=== PATIENT | male | born 1950 | race Caucasian/White ===

== ENCOUNTER 2020-04-23 14:49 | Outpatient (REF) | payer MEDICARE, SELFPAY ==
[2020-04-23 16:10] LABS: Urine Cytology See Pathology rpt
== END 2020-04-23 14:50 | disposition home or self-care (01) ==
LOC: HO.LAB 14:49
PROVIDERS: PCP Internal Medicine; Visit Provider Urology
DX: R31.0 Gross hematuria (principal)
CPT/HCPCS: 88112

== ENCOUNTER → 2020-04-30 10:06 | Outpatient (BNVA) | payer MEDICARE, SELFPAY | PROVIDERS: PCP Internal Medicine; Visit Provider Urology | DX: R31.0 Gross hematuria (principal); N40.1 Benign prostatic hyperplasia with lower urinary tract symptoms; N13.8 Other obstructive and reflux uropathy; R33.8 Other retention of urine; F17.200 Nicotine dependence, unspecified, uncomplicated | CPT/HCPCS: 52000; 99214 ==

== ENCOUNTER 2020-08-03 06:16 | Day surgery (SDC) | payer MEDICARE, SELFPAY ==
[2020-07-28 13:59] VITALS: BMI 29.9
[2020-08-03 06:49] VITALS: BP 134/77; PULSE 70; RESP 16; TEMP 36.3; O2SAT 94
[2020-08-03] MEDS: Lactated Ringers 1,000 ML 20 ML IVCONT (06:54)
[2020-08-03] MEDS: levoFLOXacin/D5W 500 MG/100 ML PIGGYBACK 100 MG IV (07:16)
--- NOTE | 2020-08-03 07:17 | P.CONAN_ITS ---
[facility] Past Medical History Medical History BPH (benign prostatic hyperplasia) Smoker Surgical History Surgical History History of detached retina repair History of open reduction and internal fixation (ORIF) procedure Social History Social History Are you a primary healthcare social worker to a significant other at home: No Do you presently have visiting nurse or other home services: No Smoking Status: Current every day smoker Packs Per Day: 0.25 Cigarettes Per Day: 5.0 Years Smoked: 40 Smoked in Last 30 Days: Yes Patient Interested in Nicotine Replacement: No Patient Given Instructions on How to Stop Smoking: Yes Date Education Initiated: 07/28/20 Use of substances other than those prescribed or required for medical reasons: No Have you been hit, kicked, punched, or otherwise hurt by someone within the past year? If so, by whom?: No Advance Directives: No Advance Directives Information Provided: No Advance Directives on File: No Recently lost weight without trying: No Meds Allergies Allergy/AdvReac Type Severity Reaction Status Date / Time No Known Allergies Allergy Verified 08/03/20 06:59 [No Known Allergies*] Home Medications Medication Instructions Recorded Confirmed Type chlorhexidine gluconate 0.12 % 15 ml PO BID 04/30/20 07/28/20 History mouthwash clobetasol 0.05 % topical cream g TOPICAL DAILY 04/30/20 History ofloxacin 0.3 % eye drops 1 drp OPHTHALMIC-RIGHT QID 04/30/20 07/28/20 History prednisolone acetate 1 % eye 1 drp OPHTHALMIC-RIGHT QID 04/30/20 07/28/20 History drops,suspension tamsulosin 0.4 mg capsule 0.4 mg PO DAILY 04/30/20 07/28/20 History Exam Exam Date and Time: August 03, 202017 Height,Weight and Vital Signs: Height 5 ft 5 in Weight 81.647 kg Last Vital Signs Temp 97.4 F 08/03/20 06:49 Pulse 70 08/03/20 06:49 Resp 16 08/03/20 06:49 BP 134/77 08/03/20 06:49 Pulse Ox 94 08/03/20 06:49 Airway Mallampati Class: II TM Dist: >3cm Neck ROM: Full Assessment and Plan Assessment Anesthesia Assessment: Anesthesia Plan Discussed, Smoking Cess. Discussed and Chart Reviewed Final Anesthetic Review NPO: Yes ASA Class: II Final Preanesthetic Review: No Changes in Pt Med Stat, Meds/Allgs Chart Reviewed, Consent Obtained/Reviewed and Anes Risks/Benef Reviewed Patient Risk: Low Procedure Risk: Low Assessment/Block/Sedation in SS: Assess/Block/Sedation-SS Anesthetic Plan Anesthetic Plan: MAC: Disposition: Standard PACU
[2020-08-03] MEDS: Gentamicin Sulfate/NaCl 80 MG/100 ML PIGGYBACK 100 MG IV (07:24)
[2020-08-03 07:49] VITALS: BP 107/65; PULSE 67; RESP 18; TEMP 36.4; O2SAT 94
[2020-08-03 08:04] VITALS: BP 115/75; PULSE 63; RESP 17; TEMP 36.3; O2SAT 96
--- NOTE | 2020-08-03 08:27 | HO.POSTANES ---
Post Anesthesia Evaluation Post Anesthesia Evaluation Vital Signs: Vital Signs Temp Pulse Resp BP Pulse Ox 08/03/20 08:04 97.3 F 63 17 115/75 96 08/03/20 07:49 97.6 F 67 18 107/65 94 08/03/20 06:49 97.4 F 70 16 134/77 94 Anesthesia: Monitored Mental Status: Awake Pain Control: Satisfactory Nausea/Vomiting: None Hydration: Adequate Anesthesia-Related Issues: No Anes. Related Issues
== END 2020-08-03 10:00 | disposition home or self-care (01) ==
PROVIDERS: PCP Internal Medicine; Visit Provider Urology
PROC: 0TJB8ZZ Inspection of Bladder, Via Natural or Artificial Opening Endoscopic (ICD-10-PCS; CPT 52000; principal; 2020-08-03 07:30)
DX: N40.1 Benign prostatic hyperplasia with lower urinary tract symptoms (principal); R33.9 Retention of urine, unspecified; R31.0 Gross hematuria; F17.210 Nicotine dependence, cigarettes, uncomplicated
CPT/HCPCS: 52000; J1580; J1956; J2405; J3010

== ENCOUNTER → 2022-01-11 13:29 | Outpatient (BNVA) | payer MEDICARE, SELFPAY | PROVIDERS: PCP Internal Medicine; Visit Provider Urology | DX: N40.1 Benign prostatic hyperplasia with lower urinary tract symptoms (principal); N13.8 Other obstructive and reflux uropathy; R31.0 Gross hematuria | CPT/HCPCS: 51798; 99202 ==

== ENCOUNTER 2023-01-08 11:48 | Outpatient (REF) | payer MEDICARE, SELFPAY ==
[2023-01-08 16:39] LABS: Urine Cytology See Pathology rpt
== END 2023-01-08 11:49 | disposition home or self-care (01) ==
LOC: HO.LNP 11:48
PROVIDERS: Visit Provider Nurse Practitioner Family
DX: N40.1 Benign prostatic hyperplasia with lower urinary tract symptoms (principal); N13.8 Other obstructive and reflux uropathy; R31.29 Other microscopic hematuria; Z79.899 Other long term (current) drug therapy
CPT/HCPCS: 51798; 88112

== ENCOUNTER 2023-01-30 10:52 | Outpatient (AMB) | payer OTHER, SELFPAY ==
--- NOTE | 2023-01-30 11:19 | A.OFFVIS_ITS ---
Intake Intake Visit Reasons: Intermittent gross hematuria Intake Note: Patient presents for gross hematuria Urology Medications: finasteride Blood Thinner: none Director Speech And Hearing Required: No Accompanied by: Self / Same As Patient Allergies No Known Allergies [No Known Allergies*] Allergy (Verified 02/01/23 05:50) Medication List - Last Reconciled 02/01/23 by MADONNA ToribioP- chlorhexidine gluconate 0.12% 15 mL PO BID clobetasol 0.05% grams topical DAILY finasteride (Proscar) 5 mg PO .MWF 90 days ofloxacin 0.3% 1 drp ophthalmic-Right QID prednisolone acetate 1% 1 drp ophthalmic-Right QID HPI HPI Comments History of Present Illness Details Vinayak Torres is a pleasant 72 year old male patient of . He presents to the office today for follow-up of his lower urinary tract symptoms. In discussion with the patient today he reports to be doing and feeling well. He discusses since his last visit here in the office approximately 3 weeks ago he has experienced 3 episodes of gross hematuria. He discusses his longstanding history of gross hematuria for many years now. He has in the past followed-up with Dr. Franklin for this same issue. He reports having had cystoscopies in the past all in which have been WNL. He reports he continues with finasteride MWF however is no longer taking his tamsulosin as he feels his urinary symptoms have improved and has been able to titrate himself off of flomax. Cytology results from last office visit reviewed with the patient today. Cytology 01/05--Negative for high-grade urothelial carcinoma. Discussed at length potential causes for hematuria. In office urinalysis today with no hematuria noted. Discussed CT urogram and in office cystoscopy for further assessment evaluation. Patient has a previous smoking history for over 40 years however quit approximately 2 years ago. He denies any known chemical exposure. PSA 07/06--0.7. When asked he denies urinary urgency, urinary frequency, incontinence, nocturia, dysuria, foul smelling urine, changes to urinary stream, flank pain, fever, and or chills. He is happy with his current voiding parameters. He otherwise offers no issues or concerns at this time. PVR 0 mL. PREVIOUS RELEVANT HX..................... Lower urinary tract symptoms Previous laser procedure on prostate 2016 office based Did have episodes of bleeding in the following 2 years Underwent cystoscopy with urologist followed by cystoscopy and fulguration with Dr. Franklin Has done well on finasteride; discussed decreasing dose Sunday, Sunday, and Fridays. Voiding symptoms stable with adequate stream and good emptying on PVR PFSH Medical History BPH (benign prostatic hyperplasia) Smoker Surgical History History of detached retina repair History of open reduction and internal fixation (ORIF) procedure Social History Are you a primary child care aide to a significant other at home: No Do you presently have visiting nurse or other home services: No Cigarette Packs Per Day: 0.25 Cigarettes Per Day: 5.0 Years Smoked: 40 Review of Systems Const All systems reviewed & are unremarkable except as noted in HPI and below Reports as per HPI Eyes Reports no additional complaints ENT Reports no additional complaints Card Reports no additional complaints Resp Reports no additional complaints GI Reports no additional complaints Reports as per HPI Musc Reports no additional complaints Neuro Reports no additional complaints Psych Reports no additional complaints Endo Reports no additional complaints Steve/Lymph Reports no additional complaints Aller/Immun Reports no additional complaints Physical Exam Const General: cooperative, healthy appearing, comfortable, no acute distress, well developed, alert and awake Orientation/consciousness: patient oriented x3 Limitations: no limitations HEENT Head: Yes normal to inspection, Yes normocephalic and Yes atraumatic Ears: hearing grossly normal bilaterally Eyes General: appearance normal, both eyes and all related structures Neck Neck: Yes normal visual inspection and Yes trachea midline Chest Chest palpation & inspection: normal inspection of the chest Resp Effort & Inspection: normal respiratory effort and able to speak in complete sentences Cardio Rate: regular rate GI Inspection: Yes normal to inspection General: Yes no CVA tenderness Back/Spine/Pelvis Back: no CVA tenderness Skin General skin exam: no rashes or lesions noted Neuro General: patient oriented x3 Extrem General: Yes normal to inspection Psych Appearance: grossly normal and well kempt Mental Status: mental status grossly normal Speech and movement: Normal speech and movement present and Clear speech present Affect: normal affect Attitude: cooperative Thought process: Normal thought process present Thought content: Normal thought content present Insight: Fair insight present (Psych) Judgement: Fair judgement present (Psych) Results AMB Urinalysis, Automated UA Leukoctes 0 [place]/uL Last Edit by Aricent Groupsridevi on 01/30/23 15:16 UA Nitrite Negative Last Edit by Promuc on 01/30/23 15:16 UA Urobilinogen 0.2 mg/dL Last Edit by Promuc on 01/30/23 15:16 UA Protein 15 mg/dL Last Edit by Promuc on 01/30/23 15:16 UA pH 5.5 Last Edit by Promuc on 01/30/23 15:16 UA Blood 0 Evan/uL Last Edit by Promuc on 01/30/23 15:16 UA Specific [place] 1.025 Last Edit by Promuc on 01/30/23 15:16 UA Ketone Positive Last Edit by Promuc on 01/30/23 15:16 UA Bilirubin 0 mg/dL Last Edit by Promuc on 01/30/23 15:16 UA Glucose 0 mg/dL Last Edit by Promuc on 01/30/23 15:16 Results Reviewed Results Reviewed: Laboratory Last Values Urine pH (Auto) 5.5 01/30/23 15:14 Specific [place] (Auto) 1.025 01/30/23 15:14 Urine Protein (Auto) 15 mg/dL 01/30/23 15:14 Glucose (UA)(Auto) 0 mg/dL 01/30/23 15:14 Urine Ketones (Auto) Positive 01/30/23 15:14 Urine Blood (Auto) 0 Evan/uL 01/30/23 15:14 Urine Nitrite (Auto) Negative 01/30/23 15:14 Urine Bilirubin (Auto) 0 mg/dL 01/30/23 15:14 Urine Urobilinogen (Auto) 0.2 mg/dL 01/30/23 15:14 Leukocyte Esterase (Auto) 0 [place]/uL 01/30/23 15:14 Assessment & Plan Assessment & Plan (1) Intermittent gross hematuria: Code(s): R31.0 - Gross hematuria Plan In office urinalysis results reviewed with the patient today; no hematuria noted Recent cytology results reviewed with the patient today. Will obtain CT urogram for further assessment evaluation. BUN and Creatinine ordred for imaging Discussed at length potential causes for hematuria. Discussed, educated, and encouraged to drink plenty of water daily. Continue Finasteride MWF Discussed in office cystoscopy once imaging is completed; patient discusses having had previous cystoscopies in [place]. Discussed insurance approval for [place] cystoscopy versus an office cystoscopy. Orders: Orders CT urogram 01/30/23 R31.0 - Gross hematuria Blood Urea Nitrogen 01/30/23 R39.15 - Urgency of urination Creatinine 01/30/23 R39.15 - Urgency of urination AMB Urinalysis Automated 01/30/23 Z13.9 - Encounter for screening, unspecified Patient Instructions: The patient had an opportunity to ask questions regarding the treatment plan. All questions were answered. Physical exam, labs, and imaging were discussed and reviewed in detail. As well as risks, benefits, and discussion of treatment choices. No major barriers to understanding were identified. The patient expressed understanding and agreement with the above treatment plan. The patient was made aware they should contact our office by phone for worsening of their current condition, the appearance of new symptoms, or with any questions or concerns. Compliance is encouraged with any medications and follow up testing that is ordered. It is a privilege to be allowed the opportunity to participate in? your urological care.? Again, if you have any questions or concerns If you have any questions or concerns please do not hesitate to contact me. The office is [phone]. This note is constructed using voice recognition software. While every effort has been made to ensure accuracy customer support executive errors may have been included. Yours sincerely, LAZARO Toribio Coding Level of Care Code Est Pt Level 3 (71484) Diagnoses Intermittent gross hematuria R31.0
== END 2023-01-30 12:04 | disposition home or self-care (01) ==
PROVIDERS: PCP Physician Assistant; Visit Provider Nurse Practitioner Family
DX: R31.0 Gross hematuria (principal)
CPT/HCPCS: 99213

== ENCOUNTER → 2023-01-30 10:52 | Outpatient (BNVA) | payer OTHER, SELFPAY | PROVIDERS: PCP Physician Assistant; Visit Provider Nurse Practitioner Family ==